=== PATIENT | female | born 1940 | race Caucasian/White ===

== ENCOUNTER 2020-09-07 14:09 | Inpatient (IN) | payer MEDICARE, OTHER ==
[~2020-09-07] VITALS: Ht 157.5 cm; Wt 64.3 kg
[2020-09-07 14:50] LABS: Eosinophils # (auto) 0.1 10 ^3/uL (0-0.8); Lymphocytes # (auto) 0.9 10 ^3/uL (0.4-5.4); Monocytes # (auto) 0.7 10 ^3/uL (0-1.3)
[2020-09-07 14:53] LABS: Basophils # (auto) 0.1 10 ^3/uL (0-0.2); Basophils % (auto) 1.1 % (0.0-2.0); Eosinophils % (auto) 1.7 % (0.0-7.0); Hematocrit 34.2 % (36.0-46.0); Hemoglobin 11.3 g/dL (12.2-16.2); Lymphocytes % (auto) 12.1 % (10.0-50.0); Mean Corpuscular Hemoglobin 25.5 pg (28.0-32.0); Mean Corpuscular Hgb Conc. 33.1 g/dL (32.0-36.0); Mean Corpuscular Volume 77.1 fL (80.0-100.0); Monocytes % (auto) 8.9 % (0.0-12.0); Neutrophils # (auto) 5.8 10 ^3/uL (1.6-8.6); Neutrophils % (auto) 76.2 % (37.0-80.0); Platelet Count (auto) 361 10^3/uL (140-450); Red Blood Cells 4.44 10^6/uL (4.0-5.20); Red Cell Distribution Width 14.8 % (11.8-14.3); White Blood Cell 7.6 10^3/uL (4.4-10.8)
[2020-09-07 15:13] LABS: Albumin 2.9 g/dL (3.4-5.0); Anion Gap 5 (5-15); Blood Urea Nitrogen 12 mg/dL (7-18); Carbon Dioxide 35 mmol/L (21-32); Chloride 98 mmol/L (98-107); Glucose 109 mg/dL (74-106); Lipase 67 U/L (73-393); Potassium 3.2 mmol/L (3.5-5.1); Sodium 138 mmol/L (136-145)
[2020-09-07 15:23] LABS: Alanine Aminotransferase 9 U/L (13-56); Alkaline Phosphatase 83 U/L (45-117); Aspartate Aminotransferase 12 U/L (15-37); BUN/Creatinine Ratio 13.5; Bilirubin, Total 0.4 mg/dL (0.2-1.0); GFR African American 79 mL/min; GFR Non-African American 65 mL/min; Total Protein 7.6 g/dL (6.4-8.2)
[2020-09-07 15:40] LABS: Urine Bacteria FEW /hpf (None Seen); Urine Blood 3+ /uL (Negative); Urine Budding Yeast OCCASIONAL /hpf (None Seen); Urine Hyaline Cast FEW /lpf (0 - 2); Urine Mucus FEW (None Seen); Urine Specific Gravity 1.027 (1.001-1.035); Urine WBC 19 /hpf (0 - 5)
[2020-09-07] MEDS ORDERED: POTASSIUM CHL 20MEQ/100ML 100 ML IV ONE (16:45)
[2020-09-07] MEDS ORDERED: metroNIDAZOLE 500MG/100ML 100 ML IV ONE (16:45)
[2020-09-07] MEDS ORDERED: cefTRIAXone 1GM/50ML D5W 50 ML IV ONE (16:45)
[2020-09-07] MEDS ORDERED: MORPHINE SULF INJ 2 MG/ML SYRINGE 1ML IV PRN (17:15)
[2020-09-07] MEDS ORDERED: LABETALOL HCL 5 MG/ML 4ML SYRINGE IV ONE (17:15)
[2020-09-07] MEDS ORDERED: NITROGLYCERIN 0.4 MG SL TAB SL PRN (17:15)
[2020-09-07] MEDS ORDERED: ASPI-498 PO (18:08)
[2020-09-07] MEDS ORDERED: PANT40T PO (18:08)
[2020-09-07] MEDS ORDERED: MULT1CAP25 PO (18:08)
[2020-09-07] MEDS ORDERED: POTASSIUM CHLORIDE 20 MEQ, LIDOCAINE 1% (LOCAL ANESTH.) 2 ML in SODIUM CHL 0.9% 100 ML IV ONE (18:15)
[2020-09-07] MEDS: ONDANSETRON HCL 4 MG/2 ML VIAL IV PRN (20:00)
[2020-09-07] MEDS ORDERED: HYDROmorphone HCL 2 MG/ML VL IV ONE (20:00)
[2020-09-07] MEDS ORDERED: LACTATED RINGER'S 1,000 ML IV ONE (20:30)
[2020-09-07] MEDS ORDERED: HYDROcodone-ACET 5/325MG TAB PO PRN (20:30)
[2020-09-07] MEDS ORDERED: FAMOTIDINE (10MG/ML) 2ML VL IV SCH ×2 (22:00)
[2020-09-07 22:20] VITALS: BP 130/74
[2020-09-08] MEDS ORDERED: PNEUMOCOCCAL VACC POLYS 25 MCG/0.5 ML VIAL IM ONE (02:45)
[2020-09-08] MEDS ORDERED: DOCUSATE SOD 100 MG CAP PO PRN (03:30)
[2020-09-08] MEDS ORDERED: ALUM & MAG HYDROX-SIMETH LIQ(MAALOX) 30 ML PO PRN (03:30)
[2020-09-08] MEDS ORDERED: hydrALAZINE HCL 20 MG/ML VL IV PRN (03:30)
[2020-09-08] MEDS ORDERED: ONDANSETRON HCL 4 MG/2 ML VIAL IV PRN (03:30)
[2020-09-08] MEDS ORDERED: NITROGLYCERIN 0.4 MG SL TAB SL PRN (03:30)
[2020-09-08] MEDS ORDERED: HYDROcodone-ACET 5/325MG TAB PO PRN (03:30)
[2020-09-08] MEDS ORDERED: MORPHINE SULF INJ 2 MG/ML SYRINGE 1ML IV PRN ×2 (03:30)
[2020-09-08] MEDS ORDERED: LORazepam 0.5 MG TAB PO PRN (03:30)
[2020-09-08] MEDS ORDERED: SODIUM CHLORIDE 0.9% 1,000 ML IV SCH (03:30)
[2020-09-08 05:00] VITALS: BP 139/69
[2020-09-08] MEDS: metroNIDAZOLE 500MG/100ML 100 ML IV SCH ×3 (06:15→21:18)
[2020-09-08 07:07] LABS: Basophils # (auto) 0.1 10 ^3/uL (0-0.2); Eosinophils # (auto) 0.3 10 ^3/uL (0-0.8); Eosinophils % (auto) 3.9 % (0.0-7.0); Hemoglobin 10.3 g/dL (12.2-16.2)
[2020-09-08 07:12] LABS: Lymphocytes # (auto) 0.9 10 ^3/uL (0.4-5.4); Mean Corpuscular Hgb Conc. 33.4 g/dL (32.0-36.0); Mean Corpuscular Volume 77.9 fL (80.0-100.0); Monocytes # (auto) 0.6 10 ^3/uL (0-1.3); Neutrophils % (auto) 73.1 % (37.0-80.0); Platelet Count (auto) 305 10^3/uL (140-450); Red Blood Cells 3.98 10^6/uL (4.0-5.20); Red Cell Distribution Width 14.5 % (11.8-14.3); White Blood Cell 6.8 10^3/uL (4.4-10.8)
[2020-09-08 07:26] LABS: INR 1.05 (0.9-1.15); Partial Thromboplastin Time 26.1 sec (23.0-31.2)
[2020-09-08 07:38] LABS: Chloride 102 mmol/L (98-107); Potassium 3.5 mmol/L (3.5-5.1); Sodium 139 mmol/L (136-145)
[2020-09-08 08:00] VITALS: BP 128/60
[2020-09-08 08:09] LABS: Alanine Aminotransferase 8 U/L (13-56); Albumin 2.5 g/dL (3.4-5.0); Alkaline Phosphatase 71 U/L (45-117); Anion Gap 7 (5-15); Aspartate Aminotransferase 10 U/L (15-37); BUN/Creatinine Ratio 12.8; Bilirubin, Total 0.3 mg/dL (0.2-1.0); Blood Urea Nitrogen 11 mg/dL (7-18); Calcium 8.5 mg/dL (8.5-10.1); Carbon Dioxide 30 mmol/L (21-32); Cholesterol 104 mg/dL (< 200); GFR African American 82 mL/min; GFR Non-African American 68 mL/min; Glucose 84 mg/dL (74-106); HDL Cholesterol 54 mg/dL (40-59); LDL Cholesterol 47 mg/dL (< 100); Magnesium 2.8 mg/dL (1.6-2.6); Phosphorus 4.1 mg/dL (2.5-4.90); Total Protein 6.7 g/dL (6.4-8.2); Triglycerides 49 mg/dL (< 150)
[2020-09-08] MEDS: cefTRIAXone 1GM/50ML D5W 50 ML IV SCH (08:46)
[2020-09-08] MEDS: ENOXAPARIN SOD 40 MG/0.4 ML SYRINGE SC SCH (08:57)
[2020-09-08] MEDS: FAMOTIDINE (10MG/ML) 2ML VL IV SCH ×2 (08:58→21:18)
[2020-09-08] MEDS ORDERED: POTASSIUM CHL 20 Meq TABLET PO SCH (10:00)
[2020-09-08] MEDS ORDERED: ASPirin 81 mg TAB PO SCH (10:00)
[2020-09-08] MEDS ORDERED: traMADol HCL 50 MG TAB PO PRN (11:00)
[2020-09-08] MEDS ORDERED: ACETAMINOPHEN 325 MG TAB PO PRN (11:00)
[2020-09-08] MEDS: D5W/ SOD CHL 0.9%/KCL 20MEQ 1,000 ML IV SCH (12:42)
[2020-09-08] MEDS: ONDANSETRON HCL 4 MG/2 ML VIAL IV PRN (14:09)
[2020-09-08 16:00] VITALS: BP 144/70
[2020-09-08 17:04] LABS: % Iron Saturation 14.3 % (15-50)
[2020-09-08 18:35] LABS: Urine Bacteria NONE SEEN /hpf (None Seen); Urine Blood 3+ /uL (Negative); Urine Mucus FEW (None Seen); Urine Specific Gravity 1.018 (1.001-1.035); Urine WBC 2 /hpf (0 - 5)
[2020-09-08] MEDS: ASPirin-EC 81 mg tab PO SCH (21:19)
[2020-09-08 22:00] VITALS: BP 147/97
[2020-09-08] MEDS: HYOSCYAMINE SULF 0.125 MG ODT TAB PO PRN (22:27)
[2020-09-09 03:21] LABS: Alcohol, Urine < 3.0 mg/dL (0-10); Amphetamine Screen, Urine NEGATIVE (NEGATIVE); Barbiturate Scree,Urine NEGATIVE (NEGATIVE); Benzodiazephine Screen, Urine NEGATIVE (NEGATIVE); Cannabinoid Screen, Urine NEGATIVE (NEGATIVE); Cocaine Screen, Urine NEGATIVE (NEGATIVE); Opiate Scree,Urine NEGATIVE (NEGATIVE); Phencyclidine Screen, Urine NEGATIVE (NEGATIVE)
[2020-09-09 03:29] LABS: Urine Bacteria FEW /hpf (None Seen); Urine Blood 3+ /uL (Negative); Urine Hyaline Cast MOD /lpf (0 - 2); Urine Mucus FEW (None Seen); Urine Specific Gravity 1.018 (1.001-1.035); Urine WBC 13 /hpf (0 - 5)
[2020-09-09] MEDS: D5W/ SOD CHL 0.9%/KCL 20MEQ 1,000 ML IV SCH ×2 (03:40→20:47)
[2020-09-09 05:00] VITALS: BP 142/79
[2020-09-09] MEDS: metroNIDAZOLE 500MG/100ML 100 ML IV SCH ×3 (06:16→22:03)
[2020-09-09] MEDS: ONDANSETRON HCL 4 MG/2 ML VIAL IV PRN ×3 (06:23→22:28)
[2020-09-09] MEDS: HYOSCYAMINE SULF 0.125 MG ODT TAB PO PRN ×2 (06:23→16:53)
[2020-09-09 08:13] VITALS: BP 134/74
[2020-09-09] MEDS: cefTRIAXone 1GM/50ML D5W 50 ML IV SCH (08:31)
[2020-09-09] MEDS: ENOXAPARIN SOD 40 MG/0.4 ML SYRINGE SC SCH (09:19)
[2020-09-09] MEDS: FAMOTIDINE (10MG/ML) 2ML VL IV SCH (09:20)
[2020-09-09 15:54] VITALS: BP 148/69
[2020-09-09] MEDS: ASPirin-EC 81 mg tab PO SCH (22:03)
[2020-09-10] MEDS: ONDANSETRON HCL 4 MG/2 ML VIAL IV PRN ×5 (04:15→19:03)
[2020-09-10 05:00] VITALS: BP 143/65
[2020-09-10] MEDS: metroNIDAZOLE 500MG/100ML 100 ML IV SCH (05:33)
[2020-09-10 07:05] LABS: Albumin 2.1 g/dL (3.4-5.0); Anion Gap 5 (5-15); Blood Urea Nitrogen 6 mg/dL (7-18); Calcium 7.7 mg/dL (8.5-10.1); Carbon Dioxide 28 mmol/L (21-32); Chloride 108 mmol/L (98-107); Glucose 131 mg/dL (74-106); Potassium 3.4 mmol/L (3.5-5.1); Sodium 141 mmol/L (136-145)
[2020-09-10 07:10] LABS: Alanine Aminotransferase < 6 U/L (13-56); Alkaline Phosphatase 71 U/L (45-117); Aspartate Aminotransferase 10 U/L (15-37); BUN/Creatinine Ratio 8.1; Bilirubin, Total 0.2 mg/dL (0.2-1.0); GFR African American 97 mL/min; GFR Non-African American 80 mL/min; Total Protein 5.8 g/dL (6.4-8.2)
[2020-09-10 07:17] LABS: Basophils # (auto) 0.1 10 ^3/uL (0-0.2); Basophils % (auto) 0.6 % (0.0-2.0); Eosinophils # (auto) 0.1 10 ^3/uL (0-0.8); Eosinophils % (auto) 0.8 % (0.0-7.0); Hemoglobin 9.4 g/dL (12.2-16.2); Lymphocytes # (auto) 0.8 10 ^3/uL (0.4-5.4); Lymphocytes % (auto) 6.6 % (10.0-50.0); Mean Corpuscular Hemoglobin 25.7 pg (28.0-32.0); Mean Corpuscular Hgb Conc. 33.6 g/dL (32.0-36.0); Mean Corpuscular Volume 76.7 fL (80.0-100.0); Monocytes # (auto) 0.8 10 ^3/uL (0-1.3); Neutrophils # (auto) 9.8 10 ^3/uL (1.6-8.6); Nucleated Red Blood Cells % 0.1 %; Platelet Count (auto) 296 10^3/uL (140-450); Red Blood Cells 3.66 10^6/uL (4.0-5.20); Red Cell Distribution Width 14.3 % (11.8-14.3); White Blood Cell 11.5 10^3/uL (4.4-10.8)
[2020-09-10 08:00] VITALS: BP 144/72
[2020-09-10] MEDS: FAMOTIDINE (10MG/ML) 2ML VL IV SCH (10:32)
[2020-09-10] MEDS: ENOXAPARIN SOD 40 MG/0.4 ML SYRINGE SC SCH (10:33)
[2020-09-10] MEDS: CEPHALEXIN 250 MG CAP PO SCH ×2 (12:27→17:50)
[2020-09-10] MEDS: D5W/ SOD CHL 0.9%/KCL 20MEQ 1,000 ML IV SCH ×2 (12:43→21:32)
[2020-09-10] MEDS: metroNIDAZOLE 500 MG TAB PO SCH ×2 (14:17→21:32)
[2020-09-10] MEDS ORDERED: GASTROGRAFIN 120 ML SOL ONE (15:04)
[2020-09-10] MEDS: ASPirin-EC 81 mg tab PO SCH (21:31)
[2020-09-10 22:00] VITALS: BP 163/81
[2020-09-11] MEDS: CEPHALEXIN 250 MG CAP PO SCH ×2 (00:02→06:00)
[2020-09-11] MEDS: ONDANSETRON HCL 4 MG/2 ML VIAL IV PRN ×2 (01:05→05:55)
[2020-09-11 05:00] VITALS: BP 158/92
[2020-09-11] MEDS: metroNIDAZOLE 500 MG TAB PO SCH (06:00)
[2020-09-11 08:00] VITALS: BP 153/74
[2020-09-11] MEDS ORDERED: CEPH250C PO (10:13)
[2020-09-11] MEDS ORDERED: ONDA-144 PO (10:13)
[2020-09-11] MEDS ORDERED: MET500T PO (10:13)
[2020-09-11] MEDS: ENOXAPARIN SOD 40 MG/0.4 ML SYRINGE SC SCH (10:41)
[2020-09-11] MEDS: FAMOTIDINE (10MG/ML) 2ML VL IV SCH (10:41)
[2020-09-11 10:49] VITALS: BP 153/74
== END 2020-09-11 12:27 | disposition home or self-care (01) | DRG 392 ==
LOC: ER 14:09 → TELE 17:06 → TELE-EAST 22:20
PROVIDERS: ADMIT Hospitalist; ATTEND Internal Medicine
DX: K57.32 Diverticulitis of large intestine without perforation or abscess without bleeding (principal); N39.0 Urinary tract infection, site not specified; E44.0 Moderate protein-calorie malnutrition; K21.9 Gastro-esophageal reflux disease without esophagitis; K29.70 Gastritis, unspecified, without bleeding; E87.6 Hypokalemia; Z96.653 Presence of artificial knee joint, bilateral; K44.9 Diaphragmatic hernia without obstruction or gangrene; I10 Essential (primary) hypertension; Z20.822 Contact with and (suspected) exposure to COVID-19; D50.9 Iron deficiency anemia, unspecified; Z80.41 Family history of malignant neoplasm of ovary; Z82.3 Family history of stroke; Z82.49 Family history of ischemic heart disease and other diseases of the circulatory system; Z86.718 Personal history of other venous thrombosis and embolism; Z90.49 Acquired absence of other specified parts of digestive tract; Z90.711 Acquired absence of uterus with remaining cervical stump; Z68.25 Body mass index [BMI] 25.0-25.9, adult; Z88.8 Allergy status to other drugs, medicaments and biological substances
CPT/HCPCS: 36415; 71045; 74176; 74250; 80053; 80061; 80307; 81001; 83036; 83540; 83550; 83690; 83735; 84100; 84484; 85025; 85610; 85730; 87040; 87086; 87426; 93005; G0378; J0696; J2001; J2405; J3480; J3490